=== PATIENT | male | born 1960 | race Two or more races ===

== ENCOUNTER 2022-05-04 07:31 | Inpatient (IN) | payer OTHER ==
[~2022-05-04] VITALS: Ht 188 cm; Wt 118.4 kg
[~2022-05-04 07:31] MED LIST: AMLO-496 PO; FAMO20TA10 PO; GEMF-19 PO; LISI20TA28 PO; LOVA20TA4 PO; METF-370 PO
[2022-05-04] MEDS ORDERED: PROPOFOL 10 MG/ML 20 ML IV ONE (08:21)
[2022-05-04] MEDS ORDERED: SODIUM CHLORIDE LOCK 10 ML ONE (08:21)
[2022-05-04] MEDS ORDERED: MIDAZOLAM HCL 2MG/2ML 2ml VIAL (1mg/ml) ONE ×2 (08:21)
[2022-05-04] MEDS ORDERED: fentaNYL CITRATE 100 MCG/2 ML VL ONE (08:21)
[2022-05-04] MEDS ORDERED: MORPHINE SULF PF 5 MG/10 ML VIAL ONE (08:21)
[2022-05-04] MEDS ORDERED: ONDANSETRON HCL 4 MG/2 ML VIAL ONE (08:21)
[2022-05-04] MEDS ORDERED: PREGABALIN CAPSULE 75 MG CAP PO ONE (08:30)
[2022-05-04] MEDS ORDERED: CELECOXIB 100 MG CAP PO ONE (08:30)
[2022-05-04] MEDS ORDERED: ACETAMINOPHEN IV 100 ML IV ONE (08:50)
[2022-05-04] MEDS ORDERED: ceFAZolin 1GM/50ML 100 ML IV ONE (08:50)
[2022-05-04] MEDS ORDERED: KETOROLAC TROMETH 30 MG/ML 1ML VIAL ONE (09:18)
[2022-05-04] MEDS ORDERED: TETRACAINE 1% INJ 2 ML VIAL IJ ONE (09:18)
[2022-05-04] MEDS ORDERED: TRANEXAMIC ACID 20 ML ONE (09:21)
[2022-05-04] MEDS ORDERED: BUPIVACAINE/DEXTROSE MPF 0.75% 2 ML AMP IT ONE (09:23)
[2022-05-04] MEDS ORDERED: EPINEPHrine HCL 1 MG/10 ML SYRG ONE (09:23)
[2022-05-04] MEDS ORDERED: METOCLOPRAMIDE HCL 5MG/ml INJ 2ml VIAL IV PRN (10:15)
[2022-05-04] MEDS ORDERED: NALOXONE HCL 0.4 MG/ML VIAL IV PRN (10:15)
[2022-05-04] MEDS ORDERED: HYDROmorphone HCL 2 MG/ML VL/or syr IV PRN (10:15)
[2022-05-04] MEDS ORDERED: diphenhdrAMINE HCL 50 MG/1 ML VL IV PRN (10:15)
[2022-05-04] MEDS ORDERED: ACCU-CHEK COMFORT CURVE STRIP VI ONE (10:15)
[2022-05-04] MEDS ORDERED: MORPHINE SULFATE 4 MG/ML SYR/VIAL IV PRN (10:15)
[2022-05-04] MEDS: BUPIVACAINE 0.25% INJ 50ML VIAL ONE ×2 (10:19→11:51)
[2022-05-04] MEDS: VANCOMYCIN HCL 1000 MG VL ONE ×2 (10:19→11:52)
[2022-05-04] MEDS: LACTATED RINGER'S 1,000 ML IV SCH ×2 (10:30→20:30)
[2022-05-04] MEDS ORDERED: NITROGLYCERIN 0.4 MG SL TAB SL PRN (10:30)
[2022-05-04] MEDS ORDERED: ACETAMINOPHEN 325 MG TAB PO PRN (10:30)
[2022-05-04] MEDS ORDERED: BISACODYL 5 MG EC TAB PO PRN (10:30)
[2022-05-04] MEDS ORDERED: MORPHINE SULFATE INJ 2 MG/ml SYRG IV PRN (10:30)
[2022-05-04] MEDS ORDERED: OXYCODONE W/ ACETAMINOPHEN 5/325MG TABLET PO PRN (10:30)
[2022-05-04] MEDS ORDERED: ceFAZolin 1GM/50ML 50 ML IV SCH (11:00)
[2022-05-04] MEDS: SODIUM CHLOR 0.9% PF (SALINE LOCK) 10ML VIAL/SYR IV SCH ×2 (14:00→21:35)
[2022-05-04] MEDS ORDERED: ONDANSETRON HCL 4 MG/2 ML VIAL IV ONE (14:16)
[2022-05-04] MEDS: ceFAZolin 1GM/50ML 50 ML IV SCH ×2 (15:22→21:44)
[2022-05-04] MEDS ORDERED: HYDROmorphone HCL 2 MG/ML VL/or syr IV ONE (16:15)
[2022-05-04 20:21] VITALS: BP 127/91
[2022-05-04 21:21] VITALS: BP 137/80
[2022-05-04] MEDS: HYDROmorphone HCL 2 MG/ML VL/or syr IV PRN (21:44)
[2022-05-04] MEDS: DOCUSATE SOD 100 MG CAP PO SCH (21:45)
[2022-05-04] MEDS: metFORMIN HYDROCHLORIDE 500 MG TAB PO SCH (21:48)
[2022-05-04] MEDS: FAMOTIDINE 20 MG TAB PO SCH (21:49)
[2022-05-04 22:00] VITALS: BP 114/65
[2022-05-04 22:21] VITALS: BP 122/83
[2022-05-04 22:45] LABS: Albumin 3.3 g/dL (3.4-5.0); BUN/Creatinine Ratio 23.9; Calcium 8.2 mg/dL (8.5-10.1); Phosphorus 3.4 mg/dL (2.5-4.90); Potassium 4.2 mmol/L (3.5-5.1)
[2022-05-04 23:21] VITALS: BP 122/81
[2022-05-05] VITALS (15 sets, daily range): BP systolic 121–172; BP diastolic 70–92
[2022-05-05] MEDS: OXYCODONE W/ ACETAMINOPHEN 5/325MG TABLET PO PRN ×4 (02:14→18:55)
[2022-05-05] MEDS: ceFAZolin 1GM/50ML 50 ML IV SCH (04:22)
[2022-05-05] MEDS: HYDROmorphone HCL 2 MG/ML VL/or syr IV PRN ×5 (04:36→22:37)
[2022-05-05 06:00] LABS: Hematocrit 36.7 % (41.0-53.0); Hemoglobin 12.4 g/dL (13.5-17.5)
[2022-05-05] MEDS: SODIUM CHLOR 0.9% PF (SALINE LOCK) 10ML VIAL/SYR IV SCH ×3 (06:10→21:30)
[2022-05-05] MEDS: LACTATED RINGER'S 1,000 ML IV SCH (06:11)
[2022-05-05 06:21] LABS: Albumin 3.2 g/dL (3.4-5.0); Calcium 8.1 mg/dL (8.5-10.1); Potassium 4.2 mmol/L (3.5-5.1)
[2022-05-05 06:27] LABS: BUN/Creatinine Ratio 26.1; Bilirubin, Total 0.6 mg/dL (0.2-1.0); Total Protein 6.1 g/dL (6.4-8.2)
[2022-05-05] MEDS: Lovastatin 10 MG TABLET PO SCH (10:00)
[2022-05-05] MEDS: ENOXAPARIN SOD 40 MG/0.4 ML SYRINGE SC SCH ×2 (10:00→16:03)
[2022-05-05] MEDS: FAMOTIDINE 20 MG TAB PO SCH ×2 (10:30→21:30)
[2022-05-05] MEDS: LISINOPRIL 20 MG TAB PO SCH (10:30)
[2022-05-05] MEDS: amLODIPine BESYLATE 5 MG TAB PO SCH (10:30)
[2022-05-05] MEDS: metFORMIN HYDROCHLORIDE 500 MG TAB PO SCH ×2 (10:30→21:30)
[2022-05-05] MEDS: DOCUSATE SOD 100 MG CAP PO SCH ×2 (10:30→21:30)
[2022-05-05] MEDS: GEMFIBROZIL 600 MG TAB PO SCH (10:30)
[2022-05-05] MEDS ORDERED: DEXTROSE (50%) 50ML SYRG IV PRN (15:00)
[2022-05-05] MEDS ORDERED: LABETALOL HCL 5 MG/ML 4ML SYRINGE IV PRN (16:30)
[2022-05-05] MEDS: InsuLIN REG 1unit/0.01ml Soln (100units/ml) SC SCH ×2 (17:00→21:31)
[2022-05-05] MEDS: ACCU-CHEK COMFORT CURVE STRIP VI SCH ×2 (17:17→21:31)
[2022-05-06] MEDS: OXYCODONE W/ ACETAMINOPHEN 5/325MG TABLET PO PRN ×2 (01:22→12:26)
[2022-05-06] MEDS: HYDROmorphone HCL 2 MG/ML VL/or syr IV PRN ×4 (04:56→20:13)
[2022-05-06 05:06] VITALS: BP 160/81
[2022-05-06] MEDS: SODIUM CHLOR 0.9% PF (SALINE LOCK) 10ML VIAL/SYR IV SCH ×3 (06:07→22:04)
[2022-05-06] MEDS: ACCU-CHEK COMFORT CURVE STRIP VI SCH ×4 (06:27→22:05)
[2022-05-06] MEDS: InsuLIN REG 1unit/0.01ml Soln (100units/ml) SC SCH ×4 (06:30→22:00)
[2022-05-06 06:39] LABS: Calcium 8.3 mg/dL (8.5-10.1); Potassium 3.7 mmol/L (3.5-5.1)
[2022-05-06 06:41] LABS: BUN/Creatinine Ratio 23.8; Basophils # (auto) 0 10 ^3/uL (0-0.2); Basophils % (auto) 0.2 % (0.0-2.0); Eosinophils # (auto) 0 10 ^3/uL (0-0.8); Eosinophils % (auto) 0.4 % (0.0-7.0); Hematocrit 35.3 % (41.0-53.0); Lymphocytes # (auto) 0.8 10 ^3/uL (0.4-5.4); Lymphocytes % (auto) 8.1 % (10.0-50.0); Mean Corpuscular Hgb Conc. 33.9 g/dL (32.0-36.0); Mean Corpuscular Volume 85.4 fL (80.0-100.0); Monocytes # (auto) 0.7 10 ^3/uL (0-1.3); Monocytes % (auto) 7.3 % (0.0-12.0); Neutrophils # (auto) 8.4 10 ^3/uL (1.6-8.6); Red Blood Cells 4.13 10^6/uL (4.5-5.90); Red Cell Distribution Width 13.6 % (11.8-14.3)
[2022-05-06 08:44] VITALS: BP 169/88
[2022-05-06] MEDS: GEMFIBROZIL 600 MG TAB PO SCH (08:47)
[2022-05-06] MEDS: DOCUSATE SOD 100 MG CAP PO SCH ×2 (08:47→22:04)
[2022-05-06] MEDS: ENOXAPARIN SOD 40 MG/0.4 ML SYRINGE SC SCH (08:48)
[2022-05-06] MEDS: LISINOPRIL 20 MG TAB PO SCH (08:48)
[2022-05-06] MEDS: FAMOTIDINE 20 MG TAB PO SCH ×2 (08:48→22:04)
[2022-05-06] MEDS: Lovastatin 10 MG TABLET PO SCH (08:49)
[2022-05-06] MEDS: amLODIPine BESYLATE 5 MG TAB PO SCH (08:49)
[2022-05-06] MEDS: ONDANSETRON HCL 4 MG/2 ML VIAL IV PRN (09:30)
[2022-05-06] MEDS: metFORMIN HYDROCHLORIDE 500 MG TAB PO SCH ×2 (10:30→22:04)
[2022-05-06] MEDS ORDERED: POTASSIUM CHL 20 Meq TABLET PO ONE (10:30)
[2022-05-06] MEDS ORDERED: LISINOPRIL 10 MG TAB PO ONE (10:30)
[2022-05-06] MEDS ORDERED: LACTULOSE 20Gm/30ML SOLN PO ONE (10:45)
[2022-05-06 10:55] VITALS: BP 149/96
[2022-05-06 13:00] VITALS: BP 141/98
[2022-05-06 17:00] VITALS: BP 127/83
[2022-05-06 22:00] VITALS: BP 138/81
[2022-05-07] MEDS: OXYCODONE W/ ACETAMINOPHEN 5/325MG TABLET PO PRN ×2 (01:23→10:00)
[2022-05-07 05:00] VITALS: BP 138/79
[2022-05-07 05:13] LABS: Hematocrit 34.6 % (41.0-53.0); Hemoglobin 11.7 g/dL (13.5-17.5)
[2022-05-07 05:28] LABS: BUN/Creatinine Ratio 23.5; Calcium 8.3 mg/dL (8.5-10.1); Magnesium 2.4 mg/dL (1.6-2.6); Potassium 3.8 mmol/L (3.5-5.1)
[2022-05-07] MEDS: SODIUM CHLOR 0.9% PF (SALINE LOCK) 10ML VIAL/SYR IV SCH ×2 (05:34→12:42)
[2022-05-07] MEDS: ACCU-CHEK COMFORT CURVE STRIP VI SCH ×3 (06:34→17:03)
[2022-05-07] MEDS: InsuLIN REG 1unit/0.01ml Soln (100units/ml) SC SCH ×3 (06:34→17:00)
[2022-05-07] MEDS: HYDROmorphone HCL 2 MG/ML VL/or syr IV PRN ×2 (06:35→10:30)
[2022-05-07 09:00] VITALS: BP 100/70
[2022-05-07] MEDS ORDERED: DOCUSATE SOD 100 MG CAP PO ONE (10:00)
[2022-05-07] MEDS ORDERED: LACTULOSE 20Gm/30ML SOLN PO ONE (10:00)
[2022-05-07] MEDS ORDERED: LISINOPRIL 20 MG TAB PO SCH (10:00)
[2022-05-07] MEDS: GEMFIBROZIL 600 MG TAB PO SCH (10:03)
[2022-05-07] MEDS: DOCUSATE SOD 100 MG CAP PO SCH (10:03)
[2022-05-07] MEDS: ENOXAPARIN SOD 40 MG/0.4 ML SYRINGE SC SCH (10:04)
[2022-05-07] MEDS: metFORMIN HYDROCHLORIDE 500 MG TAB PO SCH (10:04)
[2022-05-07] MEDS: FAMOTIDINE 20 MG TAB PO SCH (10:19)
[2022-05-07] MEDS: Lovastatin 10 MG TABLET PO SCH (10:53)
[2022-05-07] MEDS: amLODIPine BESYLATE 5 MG TAB PO SCH (10:56)
[2022-05-07 13:00] VITALS: BP 120/69
[2022-05-07 15:46] VITALS: BP 115/79
[2022-05-07 17:00] VITALS: BP 136/78
[2022-05-07] MEDS: ONDANSETRON HCL 4 MG/2 ML VIAL IV PRN (17:43)
== END 2022-05-07 18:52 | disposition home health service (06) | DRG 470 ==
LOC: SUR 07:31 → OVERFLOW 10:27 → EAST 19:40 → TELE-EAST 21:48
PROVIDERS: ADMIT Orthopaedic Surgery Adult Reconstructive Orthopaedic Surgery; ATTEND Internal Medicine
PROC: 0SRD0J9 Replacement of Left Knee Joint with Synthetic Substitute, Cemented, Open Approach (ICD-10-PCS; principal; 2022-05-05)
PROC: 8E0YXBZ Computer Assisted Procedure of Lower Extremity (ICD-10-PCS; 2022-05-05)
DX: M17.12 Unilateral primary osteoarthritis, left knee (principal); E11.9 Type 2 diabetes mellitus without complications; E78.5 Hyperlipidemia, unspecified; I10 Essential (primary) hypertension; Z20.822 Contact with and (suspected) exposure to COVID-19
CPT/HCPCS: 36415; 73562; 80048; 80053; 80069; 82962; 83036; 83735; 84443; 85014; 85018; 85025; 85049; 86850; 86900; 86901; 93005; 93306; 93971; 97110; 97116; 97163; 97530; C1713; G0378; J0131; J0690; J1815; J1885; J2250; J2405; J2704; J3490

== ENCOUNTER 2022-08-24 07:44 | Inpatient (IN) | payer OTHER ==
[~2022-08-24] VITALS: Ht 188 cm; Wt 115.0 kg
[2022-08-24] VITALS (12 sets, daily range): BP systolic 123–149; BP diastolic 70–95
[~2022-08-24 07:44] MED LIST changes: +LISI-716 PO; -LISI20TA28 PO
[2022-08-24] MEDS ORDERED: ceFAZolin 1GM/50ML 100 ML IV ONE (09:11)
[2022-08-24] MEDS ORDERED: PREGABALIN CAPSULE 75 MG CAP PO ONE (09:15)
[2022-08-24] MEDS ORDERED: CELECOXIB 100 MG CAP PO ONE (09:15)
[2022-08-24] MEDS ORDERED: ACETAMINOPHEN IV 1000 MG/100ML (10MG/ML) IV ONE (09:15)
[2022-08-24] MEDS ORDERED: VANCOMYCIN HCL 1000 MG VL ONE (09:45)
[2022-08-24] MEDS ORDERED: KETOROLAC TROMETH 30 MG/ML 1ML VIAL ONE (09:45)
[2022-08-24] MEDS ORDERED: BUPIVACAINE W/ EPINEPH 0.25% INJ 50ML MDV ONE (09:46)
[2022-08-24] MEDS ORDERED: TETRACAINE 1% INJ 2 ML VIAL IJ ONE (09:47)
[2022-08-24] MEDS ORDERED: MORPHINE SULF PF 5 MG/10 ML VIAL ONE (09:48)
[2022-08-24] MEDS ORDERED: TRANEXAMIC ACID 20 ML ONE (10:00)
[2022-08-24] MEDS ORDERED: fentaNYL CITRATE 100 MCG/2 ML VL ONE (10:13)
[2022-08-24] MEDS ORDERED: MIDAZOLAM HCL 2MG/2ML 2ml VIAL (1mg/ml) ONE ×2 (10:13→10:37)
[2022-08-24] MEDS ORDERED: DexAMETHasone SOD PHOS 10MG/1ML VIAL INJ ONE (10:36)
[2022-08-24] MEDS ORDERED: PROPOFOL 10 MG/ML 20 ML IV ONE (10:36)
[2022-08-24] MEDS ORDERED: ePHEDrine SULFATE 50 MG/ML AMP IV PRN (11:00)
[2022-08-24] MEDS ORDERED: METOCLOPRAMIDE HCL 5MG/ml INJ 2ml VIAL IV PRN (11:00)
[2022-08-24] MEDS ORDERED: NALOXONE HCL 0.4 MG/ML VIAL IV PRN (11:00)
[2022-08-24] MEDS ORDERED: NALBUPHINE HCL 10 MG/1ml INJECTION SUBCUT ONE (11:00)
[2022-08-24] MEDS ORDERED: LABETALOL HCL 5 MG/ML 4ML SYRINGE IV PRN (11:00)
[2022-08-24] MEDS ORDERED: MIDAZOLAM HCL 2MG/2ML 2ml VIAL (1mg/ml) IV PRN (11:00)
[2022-08-24] MEDS ORDERED: ACCU-CHEK COMFORT CURVE STRIP VI ONE (11:00)
[2022-08-24] MEDS ORDERED: HYDROmorphone HCL 2 MG/ML VL/or syr IV PRN (11:00)
[2022-08-24] MEDS ORDERED: DexAMETHasone SOD PHOS 10MG/1ML VIAL INJ IV PRN (11:00)
[2022-08-24] MEDS ORDERED: ONDANSETRON HCL 4 MG/2 ML VIAL IV PRN ×3 (11:00→12:30)
[2022-08-24] MEDS ORDERED: diphenhdrAMINE HCL 50 MG/1 ML VL IV PRN (11:00)
[2022-08-24] MEDS ORDERED: BISACODYL 5 MG EC TAB PO PRN (12:30)
[2022-08-24] MEDS ORDERED: MORPHINE SULFATE INJ 2 MG/ml SYRG IV PRN (12:30)
[2022-08-24] MEDS ORDERED: NITROGLYCERIN 0.4 MG SL TAB SL PRN (12:30)
[2022-08-24] MEDS: LACTATED RINGER'S 1,000 ML IV SCH (12:30)
[2022-08-24] MEDS ORDERED: DEXTROSE (50%) 50ML SYRG IV PRN (12:30)
[2022-08-24] MEDS ORDERED: ACETAMINOPHEN 325 MG TAB PO PRN (12:30)
[2022-08-24] MEDS ORDERED: LISINOPRIL 10 MG TAB PO ONE (13:45)
[2022-08-24] MEDS: SODIUM CHLOR 0.9% PF (SALINE LOCK) 10ML VIAL/SYR IV SCH ×2 (14:00→22:00)
[2022-08-24] MEDS: ceFAZolin 1GM/50ML 50 ML IV SCH ×2 (15:54→22:07)
[2022-08-24] MEDS ORDERED: ACCU-CHEK COMFORT CURVE STRIP VI SCH (17:00)
[2022-08-24] MEDS: ACCU-CHEK COMFORT CURVE STRIP VI SCH ×2 (17:00→22:00)
[2022-08-24] MEDS: InsuLIN REG 1unit/0.01ml Soln (100units/ml) SC SCH ×2 (17:00→21:50)
[2022-08-24] MEDS: PRAVASTATIN SODIUM 20 MG TAB PO SCH (21:56)
[2022-08-24] MEDS: LISINOPRIL 10 MG TAB PO SCH (21:56)
[2022-08-24] MEDS: FAMOTIDINE 20 MG TAB PO SCH (21:56)
[2022-08-24] MEDS: DOCUSATE SOD 100 MG CAP PO SCH (21:56)
[2022-08-25] VITALS (19 sets, daily range): BP systolic 105–161; BP diastolic 62–97
[2022-08-25] MEDS: LACTATED RINGER'S 1,000 ML IV SCH (00:15)
[2022-08-25] MEDS: OXYCODONE W/ ACETAMINOPHEN 5/325MG TABLET PO PRN ×3 (04:49→12:58)
[2022-08-25] MEDS: SODIUM CHLOR 0.9% PF (SALINE LOCK) 10ML VIAL/SYR IV SCH ×3 (06:00→21:56)
[2022-08-25] MEDS: ceFAZolin 1GM/50ML 50 ML IV SCH (06:08)
[2022-08-25] MEDS: InsuLIN REG 1unit/0.01ml Soln (100units/ml) SC SCH ×4 (06:36→21:54)
[2022-08-25] MEDS: GEMFIBROZIL 600 MG TAB PO SCH (06:44)
[2022-08-25 06:55] LABS: Hemoglobin 11.5 g/dL (13.5-17.5)
[2022-08-25] MEDS: ACCU-CHEK COMFORT CURVE STRIP VI SCH ×4 (07:00→21:52)
[2022-08-25 07:11] LABS: Potassium 3.9 mmol/L (3.5-5.1)
[2022-08-25 07:24] LABS: Albumin 3.1 g/dL (3.4-5.0); BUN/Creatinine Ratio 25.8; Calcium 8.5 mg/dL (8.5-10.1)
[2022-08-25 07:26] LABS: Bilirubin, Total 0.4 mg/dL (0.2-1.0); Total Protein 5.8 g/dL (6.4-8.2)
[2022-08-25] MEDS: DOCUSATE SOD 100 MG CAP PO SCH ×2 (08:38→21:40)
[2022-08-25] MEDS: ENOXAPARIN SOD 40 MG/0.4 ML SYRINGE SC SCH (08:38)
[2022-08-25] MEDS: FAMOTIDINE 20 MG TAB PO SCH ×2 (08:39→21:40)
[2022-08-25] MEDS: amLODIPine BESYLATE 5 MG TAB PO SCH (08:39)
[2022-08-25] MEDS: LISINOPRIL 10 MG TAB PO SCH ×2 (08:40→21:40)
[2022-08-25 12:30] LABS: Urine Bacteria NONE SEEN /hpf (None Seen); Urine Blood Negative /uL (Negative); Urine Specific Gravity 1.008 (1.001-1.035); Urine WBC <1 /hpf (0 - 3)
[2022-08-25] MEDS: HYDROmorphone HCL 2 MG/ML VL/or syr IV PRN ×2 (16:08→21:40)
[2022-08-25] MEDS: PRAVASTATIN SODIUM 20 MG TAB PO SCH (21:40)
[2022-08-26] MEDS: HYDROmorphone HCL 2 MG/ML VL/or syr IV PRN ×3 (00:49→08:57)
[2022-08-26 05:00] VITALS: BP 162/86
[2022-08-26 06:21] LABS: Hematocrit 32.5 % (41.0-53.0)
[2022-08-26] MEDS: SODIUM CHLOR 0.9% PF (SALINE LOCK) 10ML VIAL/SYR IV SCH ×3 (06:21→21:45)
[2022-08-26] MEDS: GEMFIBROZIL 600 MG TAB PO SCH (06:36)
[2022-08-26] MEDS: hydrALAZINE HCL 20 MG/ML VL IV PRN ×2 (06:36→17:30)
[2022-08-26] MEDS: InsuLIN REG 1unit/0.01ml Soln (100units/ml) SC SCH ×4 (07:00→21:50)
[2022-08-26] MEDS: ACCU-CHEK COMFORT CURVE STRIP VI SCH ×4 (07:08→21:45)
[2022-08-26] MEDS: ENOXAPARIN SOD 40 MG/0.4 ML SYRINGE SC SCH (08:59)
[2022-08-26] MEDS: DOCUSATE SOD 100 MG CAP PO SCH ×2 (08:59→21:38)
[2022-08-26] MEDS: FAMOTIDINE 20 MG TAB PO SCH ×2 (08:59→21:38)
[2022-08-26 09:00] VITALS: BP 157/91
[2022-08-26] MEDS: amLODIPine BESYLATE 5 MG TAB PO SCH (09:00)
[2022-08-26] MEDS: LISINOPRIL 10 MG TAB PO SCH ×2 (09:00→21:45)
[2022-08-26] MEDS ORDERED: LISINOPRIL 10 MG TAB PO ONE (11:15)
[2022-08-26] MEDS ORDERED: LACTULOSE 20Gm/30ML SOLN PO ONE (11:30)
[2022-08-26] MEDS: OXYCODONE W/ ACETAMINOPHEN 5/325MG TABLET PO PRN ×3 (11:42→21:38)
[2022-08-26 13:00] VITALS: BP 174/94
[2022-08-26 17:00] VITALS: BP 169/88
[2022-08-26] MEDS: PRAVASTATIN SODIUM 20 MG TAB PO SCH (21:37)
[2022-08-26] MEDS: LACTULOSE 20Gm/30ML SOLN PO SCH (21:45)
[2022-08-26 22:00] VITALS: BP 142/87
[2022-08-27] MEDS: OXYCODONE W/ ACETAMINOPHEN 5/325MG TABLET PO PRN ×5 (02:19→23:10)
[2022-08-27 05:00] VITALS: BP 128/84
[2022-08-27] MEDS: SODIUM CHLOR 0.9% PF (SALINE LOCK) 10ML VIAL/SYR IV SCH ×3 (06:13→23:24)
[2022-08-27 06:27] LABS: Hematocrit 33.2 % (41.0-53.0); Hemoglobin 11.1 g/dL (13.5-17.5)
[2022-08-27] MEDS: ACCU-CHEK COMFORT CURVE STRIP VI SCH ×4 (06:33→23:27)
[2022-08-27] MEDS: InsuLIN REG 1unit/0.01ml Soln (100units/ml) SC SCH ×4 (06:33→22:00)
[2022-08-27] MEDS: GEMFIBROZIL 600 MG TAB PO SCH (06:36)
[2022-08-27 09:00] VITALS: BP 143/74
[2022-08-27] MEDS: LACTULOSE 20Gm/30ML SOLN PO SCH ×2 (10:52→22:00)
[2022-08-27] MEDS: FAMOTIDINE 20 MG TAB PO SCH ×2 (10:52→23:25)
[2022-08-27] MEDS: amLODIPine BESYLATE 5 MG TAB PO SCH (10:53)
[2022-08-27] MEDS: LISINOPRIL 10 MG TAB PO SCH ×2 (10:53→23:26)
[2022-08-27] MEDS: DOCUSATE SOD 100 MG CAP PO SCH ×2 (10:53→23:25)
[2022-08-27] MEDS: ENOXAPARIN SOD 40 MG/0.4 ML SYRINGE SC SCH (10:53)
[2022-08-27 13:00] VITALS: BP 150/93
[2022-08-27] MEDS ORDERED: KETOROLAC TROMETH 30 MG/ML 1ML VIAL IV ONE (13:00)
[2022-08-27 17:02] VITALS: BP 136/80
[2022-08-27 22:00] VITALS: BP 140/82
[2022-08-27] MEDS: PRAVASTATIN SODIUM 20 MG TAB PO SCH (23:25)
[2022-08-28 05:18] VITALS: BP 137/75
[2022-08-28] MEDS: GEMFIBROZIL 600 MG TAB PO SCH (06:34)
[2022-08-28] MEDS: ACCU-CHEK COMFORT CURVE STRIP VI SCH ×2 (06:34→11:30)
[2022-08-28] MEDS: OXYCODONE W/ ACETAMINOPHEN 5/325MG TABLET PO PRN ×2 (06:37→13:15)
[2022-08-28] MEDS: InsuLIN REG 1unit/0.01ml Soln (100units/ml) SC SCH ×2 (06:38→11:50)
[2022-08-28] MEDS: SODIUM CHLOR 0.9% PF (SALINE LOCK) 10ML VIAL/SYR IV SCH ×2 (06:40→13:43)
[2022-08-28 08:49] VITALS: BP 137/84
[2022-08-28] MEDS: DOCUSATE SOD 100 MG CAP PO SCH (10:46)
[2022-08-28] MEDS: FAMOTIDINE 20 MG TAB PO SCH (10:46)
[2022-08-28] MEDS: amLODIPine BESYLATE 5 MG TAB PO SCH (10:47)
[2022-08-28] MEDS: LACTULOSE 20Gm/30ML SOLN PO SCH (10:48)
[2022-08-28] MEDS: LISINOPRIL 10 MG TAB PO SCH (10:48)
[2022-08-28] MEDS: ENOXAPARIN SOD 40 MG/0.4 ML SYRINGE SC SCH (10:49)
[2022-08-28 12:48] VITALS: BP 129/75
[2022-08-28 13:45] VITALS: BP 129/84
== END 2022-08-28 15:10 | disposition home health service (06) | DRG 470 ==
LOC: SUR 07:44 → OVERFLOW 12:21 → EAST 14:40 → TELE-EAST 15:20 → EAST 08-25 11:53
PROVIDERS: ADMIT Orthopaedic Surgery Adult Reconstructive Orthopaedic Surgery; ATTEND Internal Medicine
PROC: 0SRC0J9 Replacement of Right Knee Joint with Synthetic Substitute, Cemented, Open Approach (ICD-10-PCS; principal; 2022-08-25)
PROC: 8E0YXBZ Computer Assisted Procedure of Lower Extremity (ICD-10-PCS; 2022-08-25)
DX: M17.11 Unilateral primary osteoarthritis, right knee (principal); E11.9 Type 2 diabetes mellitus without complications; E66.9 Obesity, unspecified; E78.5 Hyperlipidemia, unspecified; I10 Essential (primary) hypertension; Z68.32 Body mass index [BMI] 32.0-32.9, adult; Z20.822 Contact with and (suspected) exposure to COVID-19
CPT/HCPCS: 36415; 73560; 73562; 80053; 81001; 82962; 85014; 85018; 86850; 86900; 86901; 97110; 97116; 97163; 97530; G0378; J0131; J0690; J1100; J1815; J1885; J2250; J2704

== ENCOUNTER → 2022-11-23 | Day surgery (SDC) | payer OTHER ==
[~2022-11-23] VITALS: Ht 188 cm; Wt 108.9 kg
[~2022-11-23] MED LIST changes: +DexAMETHasone SOD PHOS 10MG/1ML VIAL INJ ONE; +GLYCOPYRROLATE 0.2 MG/ML 1ML VIAL ONE; +HYDROmorphone HCL 2 MG/ML VL/or syr IV PRN; +KETOROLAC TROMETH 30 MG/ML 1ML VIAL ONE; +LIDOCAINE 1%HCL (LOCAL ANESTH) 10 ML MDV ONE; +LIDOCAINE 2%HCL (LOCAL ANESTH.) INJ 10ml MDV ONE; +LIDOCAINE HCL (LOCAL ANESTH.) 0.5 % 50ML MDV IJ ONE; +LIDOCAINE HCL 100 MG/5ML (2%) SYRG INJ IV ONE; +LIDOCAINE W/ EPINEPHRINE 1% 20ML VIAL ONE; +MIDAZOLAM HCL 2MG/2ML 2ml VIAL (1mg/ml) ONE; +ONDANSETRON HCL 4 MG/2 ML VIAL IV PRN; +ONDANSETRON HCL 4 MG/2 ML VIAL ONE; +PROPOFOL 10 MG/ML 20 ML IV ONE; +ceFAZolin 1GM/50ML 100 ML IV ONE; +fentaNYL CITRATE 100 MCG/2 ML VL ONE; +methylPREDNISolone ACETATE 80 MG/ML VL ONE
[2022-11-23 10:33] VITALS: BP 112/71
== END | disposition home or self-care (01) ==
LOC: SUR 06:39
PROVIDERS: ATTEND Orthopaedic Surgery Adult Reconstructive Orthopaedic Surgery
DX: M24.661 Ankylosis, right knee (principal); I10 Essential (primary) hypertension; E11.9 Type 2 diabetes mellitus without complications; E78.5 Hyperlipidemia, unspecified; Z79.899 Other long term (current) drug therapy; Z79.84 Long term (current) use of oral hypoglycemic drugs; Z98.890 Other specified postprocedural states; Z20.822 Contact with and (suspected) exposure to COVID-19; Z96.651 Presence of right artificial knee joint
CPT/HCPCS: 27570; 82962; J0690; J1040; J1100; J1885; J2001; J2250; J2405; J2704; J3010; U0003